=== PATIENT | female | born 1960 | race Caucasian/White ===

== ENCOUNTER 2018-12-17 00:57 | Emergency (ER) | payer MEDICAID ==
[~2018-12-17] VITALS: Ht 157.5 cm; Wt 62.6 kg
[2018-12-17 00:58] VITALS: BP 179/116
[2018-12-17] MEDS ORDERED: NACL 0.9% 1,000 ML IV ONE (01:15)
[2018-12-17 02:01] LABS: HEMATOCRIT 44.2 % (36-48); HEMOGLOBIN 14.6 g/dL (12.0-16.0); MEAN CORPUSCULAR HEMOGLOBIN 30 pg (27-31); MEAN CORPUSCULAR HGB CONC 33 g/dL (33-37); MEAN CORPUSCULAR VOLUME 90.8 fL (80-94); PLATELET COUNT (AUTO) 268 K/uL (140-450); RED BLOOD CELL COUNT(AUTO) 4.87 MIL/uL (4.20-5.40); RED CELL DISTRIBUTION WIDTH 13.1 % (11.6-13.7); WHITE BLOOD COUNT (AUTO) 8.7 K/uL (4.8-10.8)
[2018-12-17 02:05] LABS: ANION GAP 14.8 (8-16); CARBON DIOXIDE 26.7 mmol/L (21-32); POTASSIUM 3.5 mmol/L (3.5-5.1)
[2018-12-17 02:06] LABS: CREATININE 0.7 mg/dL (0.6-1.3); TOTAL BILIRUBIN 0.6 mg/dL (0.0-1.0)
[2018-12-17 02:17] LABS: EOSINOPHILS % (MANUAL) 2 % (0-4); LYMPHOCYTES % (MANUAL) 52 % (20-46); MONOCYTES % (MANUAL) 6 % (5-12)
[2018-12-17] MEDS ORDERED: INSULIN REGULAR, HUMAN 100 UNIT/ML VIAL IVP ONE (02:20)
[2018-12-17 03:51] VITALS: BP 140/91
== END 2018-12-17 03:52 | disposition home or self-care (01) ==
LOC: MED 00:57
DX: K59.00 Constipation, unspecified (principal); R50.9 Fever, unspecified; I10 Essential (primary) hypertension; E11.9 Type 2 diabetes mellitus without complications; R19.7 Diarrhea, unspecified
CPT/HCPCS: 36415; 74022; 80053; 85025; 89055; 96360; 96372; 99284; J1815; J7030

== ENCOUNTER 2020-12-08 17:42 | Inpatient (IN) | payer MEDICAID, SELFPAY ==
[~2020-12-08] VITALS: Ht 162.6 cm; Wt 46.7 kg
[2020-12-08 17:51] VITALS: BP 66/45
--- NOTE | 2020-12-08 18:08 | NUR ---
60YO F BIB AND DAUGHTER C/O POOR APPETITE AND FATIGUE X 1 MONTH. STATES LOSING ~15LBS IN THE LAST MONTH. ALSO WITH WEAKNESS AND DAILY EPISODES OF VOMITING. PT STATES SHE HAS NOT BEEN ABLE TO KEEP ANY FOOD/LIQUIDS DOWN. REPORTS SOB AT THIS TIME. DENIES ABDOMINAL PAIN, CHEST PAIN, FEVER, OR COUGH. BREATH SOUNDS DIMISHED ON L LOWER LOBES. BOWEL SOUNDS ACTIVE. PT PMH: DM, THN MEDS: NONE NKA
--- NOTE | 2020-12-08 18:26 | NUR ---
DR DAVIDSON AT BEDSIDE FOR ASSESSMENT.
[2020-12-08] MEDS ORDERED: NACL 0.9% 1,000 ML IV ONE ×2 (18:45→19:45)
--- NOTE | 2020-12-08 18:48 | NUR ---
IV 20 HEVER STARTED ON L AC.
--- NOTE | 2020-12-08 18:53 | NUR ---
BLOOD WORK COLLECTED AND WALKED OVER TO LAB
--- NOTE | 2020-12-08 18:59 | NUR ---
PATIENT WAS TAKEN TO XRAY VIA WHEELCHAIR.
[2020-12-08 19:02] LABS: BASOPHILS % (AUTO) 0.1 % (0.0-2.0); EOSINOPHILS % (AUTO) 0.1 % (0.0-4.0); HEMATOCRIT 30.6 % (36-48); HEMOGLOBIN 10.2 g/dL (12.0-16.0); LYMPHOCYTES # (AUTO) 5.1 K/uL (2.5-16.5); LYMPHOCYTES % (AUTO) 27.9 % (20.5-51.1); MEAN CORPUSCULAR HEMOGLOBIN 29 pg (27-31); MEAN CORPUSCULAR HGB CONC 33 g/dL (33-37); MEAN CORPUSCULAR VOLUME 86.3 fL (80-94); MONOCYTES # (AUTO) 0.6 K/uL (0.8-1.0); NEUTROPHILS # (AUTO) 12.7 K/uL (1.8-7.7); NEUTROPHILS % (AUTO) 68.9 % (42.2-75.2); PLATELET COUNT (AUTO) 374 K/uL (140-450); RED BLOOD CELL COUNT(AUTO) 3.54 MIL/uL (4.20-5.40); RED CELL DISTRIBUTION WIDTH 13.6 % (11.6-13.7); WHITE BLOOD COUNT (AUTO) 18.4 K/uL (4.8-10.8)
--- NOTE | 2020-12-08 19:07 | NUR ---
Anh gonzalez in [facility] - 12/08/20 at 1914 by [email or web address] REPORT GIVEN TO EDDIE MONTELONGO FOR TRANSFER OF CARE
--- NOTE | 2020-12-08 19:14 | NUR ---
REPORT GIVEN TO EDDIE MONTELONGO FOR TRANSFER OF CARE
--- NOTE | 2020-12-08 19:15 | NUR ---
GAVE REPORT TO JAYDA MORGAN FOR TRANSFER OF CARE.
[2020-12-08 19:25] LABS: ALBUMIN 2.3 g/dL (3.4-5.0); ANION GAP 7.7 (8-16); CARBON DIOXIDE 36.2 mmol/L (21-32); CREATININE 2.1 mg/dL (0.6-1.3); TOTAL BILIRUBIN 0.7 mg/dL (0.0-1.0)
[2020-12-08 19:28] LABS: POTASSIUM 2.9 mmol/L (3.5-5.1)
[2020-12-08] MEDS ORDERED: POTASSIUM CHLORIDE 20% 40 MEQ/15 ML UDC PO ONE (19:40)
[2020-12-08] MEDS ORDERED: POTASSIUM CHL 20 MEQ/ 1/2 NS 1,000 ML IV ONE (19:40)
[2020-12-08] MEDS ORDERED: VANCOMYCIN 1,000 MG in DEXTROSE 5% 250 ML IV ONE (19:40)
--- NOTE | 2020-12-08 19:43 | NUR ---
I&O DONE WITH PERICARE. PT TO BE ADMITTED. COMPREHENSIVE ASSEMENT DONE. PT RESTING ON ED GURNEY WITH NAD NOTED. VS WITHIN DEFINED LIMITS AT THIS TIME.
[2020-12-08] MEDS ORDERED: cefTRIAXone 2,000 MG in DEXTROSE 5% 100 ML IV ONE (19:45)
[2020-12-08 19:47] LABS: APPEARANCE,URINE CLOUDY (CLEAR); BILIRUBIN,URINE NEGATIVE (NEGATIVE); BLOOD, URINE 2+ (NEGATIVE); COLOR,URINE YELLOW (YELLOW); LEUKOCYTE ESTERASE ,URINE 2+ (NEGATIVE); NITRITE, URINE NEGATIVE (NEGATIVE); PH,URINE 5.5 (5.0-9.0); UGLUCOSE 3+ (NEGATIVE)
[2020-12-08 19:51] LABS: RBC,URINE 11-20 (MOD) /HPF (0-5)
[2020-12-08 19:52] LABS: YEAST,URINE Many /HPF (None Seen)
[2020-12-08] MEDS ORDERED: VANCOMYCIN 1,000 MG VIAL ONE (20:39)
--- NOTE | 2020-12-08 21:10 | NUR ---
CONSENT FOR IV CONTRAST DONE
[2020-12-08] MEDS: NACL 0.9% 1,000 ML IV SCH (21:30)
--- NOTE | 2020-12-08 22:09 | NUR ---
PT RETURN FROM CT
--- NOTE | 2020-12-08 22:17 | NUR ---
Anh gonzalez in [facility] - 12/08/20 at 2219 by [email or web address] BACK [address]
--- NOTE | 2020-12-08 22:17 | NUR ---
BACK FROM CT
--- NOTE | 2020-12-08 23:09 | NUR ---
PENDING BED ASSIGNMENT NO CHANGES NOTED IN PT STATUS.
[2020-12-08 23:22] LABS: CARBON DIOXIDE 36.1 mmol/L (21-32); CREATININE 1.8 mg/dL (0.6-1.3); POTASSIUM 3.1 mmol/L (3.5-5.1)
--- NOTE | 2020-12-08 23:22 | NUR ---
REPORT TO LINDA. ALL QUESTIONS ANSWERED. ROCEPHIN STILL NEEDS TO BE HUNG. PT IV SITE IN AC PT KEEPS BENDING ARM. IVF BAG #2 STILL NEEDS TO BE HUNG ALSO ENDORSED.
--- NOTE | 2020-12-08 23:30 | NUR ---
RECEIVING REPORT FROM EDDIE MONTELONGO RN FOR ADMIT TO [facility] ROOM 110A. REPORT STOPPED MID-REPORT D/T PATIENT NOT BEING STABLE. PT DX: HYPERGLYCEMIA WITH BS 672 W/ LETHARGY AND NO INTERVENTIONS PERFORMED IN ED. NO INSULIN ORDERED OR GIVEN TO PATIENT. NO BEDSIDE GLUCOSE ACCUCHECK PERFORMED IN ED EITHER. REPEAT 2300 CHEM LABS IN PROCESS AT THIS, PENDING. ENDORSED TO JAYDA MORGAN TO CALL ME BACK TO CONTINUE/FINISH REPORT ONCE PATIENT IS STABLE TO ADMIT TO FLOOR.
--- NOTE | 2020-12-08 23:30 | NUR ---
NURSE NOT WILLING TO ACCEPT PT AT THIS TIME D/T BLOOD GLUCOSE.
--- NOTE | 2020-12-08 23:35 | NUR ---
HVAC MANAGER MJ NOTIFIED THAT REPORT WAS NOT COMPLETED PT IS NOT STABLE FOR ADMIT TO FLOOR YET AND ED RN ADVISED TO CALL BACK TO CONTINUE/FINISH REPORT ONCE PATIENT STABLE AND ORDERS/INTERVENTIONS COMPLETE. HVAC MANAGER MJ IN AGREEMENT TO HOLD ADMIT TO FLOOR UNTIL PATIENT STABLE.
--- NOTE | 2020-12-08 23:40 | NUR ---
SHORT ORDER COOK FROM ED CALLED SHORT ORDER COOK VIJAYA TO NOTIFY THAT PATIENT WILL BE COMING TO FLOOR AND REPORT WILL BE GIVEN AT BEDSIDE WITH NO FURTHER ORDERS/INTERVENTIONS COMPLETE.
--- NOTE | 2020-12-08 23:44 | NUR ---
PT TO BE TRANSFERRED TO FLOOR. RECEIVING NURSE AWARE. DR SHEIKH GAVE ORDERS FOR INSULIN SLIDING SCALE AND 10 UNITS NOW.
[2020-12-08] MEDS ORDERED: INSULIN LISPRO SLIDING SCALE 100 UNITS/ML VIAL SUBQ PRN ×2 (23:45→23:59)
[2020-12-08] MEDS ORDERED: INSULIN REGULAR, HUMAN 100 UNIT/ML VIAL IVP ONE (23:45)
--- NOTE | 2020-12-08 23:45 | NUR ---
REESE FALCON NOTIFIED OF SITUATION THAT REPORT WAS NOT COMPLETED, PATIENT NOT STABILIZED FOR ADMIT TO FLOOR AND NO ORDERS/INTERVENTIONS COMPLETED IN ED. TERRIE TO ACCESS PATIENT IN ED.
[2020-12-08] MEDS ORDERED: cefTRIAXone 2,000 MG VIAL ONE (23:51)
--- NOTE | 2020-12-09 00:20 | NUR ---
PATIENT ARRIVED. ED RN DID NOT ACCOMPANY PATIENT TO COMPLETE BEDSIDE REPORT, NOR SEND LATE MEDS TO BE ADMINISTERED. CALLED ED DEATRA RN TO FINISH REPORT. 2300 CHEM COMPLETE, BS 598, 10U INSULIN GIVE PER UX DESIGN MANAGER. PT ARRIVED AAOX3. BREATHING EVEN AND UNLABORED ON RA WITH O2 SAT OF 99%. NO C/O CP, SOB OR PAIN. L AC 20G IVL, INTACT/PATENT. POC AND WHITE COMMUNICATION BOARD UPDATED. BED IN LOW/LOCKED POSITION. CALL LIGHT WITHIN REACH. PT ENCOURAGED TO CALL FOR ANY NEEDS/ASSISTANCE. WILL CONTINUE TO MONITOR.
--- NOTE | 2020-12-09 00:29 | NUR ---
BEDSIDE ACCUCHECK COMPLETE, BS 539. WILL CONTINUE TO MONITOR.
--- NOTE | 2020-12-09 00:39 | NUR ---
MEDICATED WITH INSULIN SUBQ FOR LAB BLOOD GLUCOSE 598 PRIOR TO TRANSPORT TO FLOOR
[2020-12-09 01:09] VITALS: BP 119/66
[2020-12-09] MEDS ORDERED: ZOLPIDEM 5 MG TAB PO PRN (01:10)
[2020-12-09] MEDS ORDERED: MORPHINE SULFATE 2 MG/ML SYR IVP PRN (01:10)
[2020-12-09] MEDS ORDERED: ACETAMINOPHEN 325 MG TAB PO PRN (01:10)
[2020-12-09] MEDS ORDERED: DOCUSATE SODIUM 100 MG GELCAP PO PRN (01:10)
[2020-12-09] MEDS ORDERED: LORazepam 2 MG/ML VIAL IM/IVP PRN (01:10)
[2020-12-09] MEDS ORDERED: ONDANSETRON 4 MG/2 ML VIAL IM/IVP PRN (01:10)
[2020-12-09] MEDS ORDERED: HYDROcodone/APAP 5/325 MG 1 TAB TAB PO PRN (01:10)
[2020-12-09] MEDS ORDERED: POTASSIUM CHLORIDE 10 MEQ TABER PO PRN (01:20)
[2020-12-09 01:46] LABS: BARBITURATE, URINE NEGATIVE ng/ml (NEG <=200); BENZODIAZEPINE, URINE NEGATIVE ng/mL (NEG <=200); CANNABINOID, URINE NEGATIVE ng/mL (NEG <=50); COCAINE, URINE NEGATIVE ng/mL (NEG <=300); OPIATE, URINE NEGATIVE ng/mL (NEG <=2000); PHENCYCLIDINE SCREEN,URINE NEGATIVE ng/mL (NEG <=25)
[2020-12-09 01:52] LABS: CHOL/HDL RATIO 2.4 (1-4.5); THYROID STIMULATING HORMONE 0.97 uIU/mL (0.34-3.74)
[2020-12-09 03:11] LABS: BASOPHILS % (AUTO) 0.2 % (0.0-2.0); EOSINOPHILS # (AUTO) 0.1 K/uL (0-0.4); EOSINOPHILS % (AUTO) 0.5 % (0.0-4.0); HEMATOCRIT 27.4 % (36-48); HEMOGLOBIN 9.2 g/dL (12.0-16.0); LYMPHOCYTES # (AUTO) 5.2 K/uL (2.5-16.5); LYMPHOCYTES % (AUTO) 31.1 % (20.5-51.1); MEAN CORPUSCULAR HEMOGLOBIN 29 pg (27-31); MEAN CORPUSCULAR HGB CONC 34 g/dL (33-37); MEAN CORPUSCULAR VOLUME 85.5 fL (80-94); MONOCYTES # (AUTO) 0.6 K/uL (0.8-1.0); MONOCYTES % (AUTO) 3.3 % (1.7-9.3); NEUTROPHILS # (AUTO) 10.8 K/uL (1.8-7.7); NEUTROPHILS % (AUTO) 64.9 % (42.2-75.2); PLATELET COUNT (AUTO) 373 K/uL (140-450); RED CELL DISTRIBUTION WIDTH 13.9 % (11.6-13.7); WHITE BLOOD COUNT (AUTO) 16.6 K/uL (4.8-10.8)
[2020-12-09 03:26] LABS: ANION GAP 5.7 (8-16); CARBON DIOXIDE 36.2 mmol/L (21-32); CREATININE 1.8 mg/dL (0.6-1.3)
[2020-12-09 03:28] LABS: MAGNESIUM 1.3 mg/dL (1.8-2.4)
[2020-12-09 04:00] VITALS: BP 136/74
[2020-12-09] MEDS: NACL 0.9% 1,000 ML IV SCH ×2 (04:10→10:50)
[2020-12-09 04:18] LABS: PROTHROMBIN TIME 15.1 secs (10.8-13.4)
[2020-12-09 04:22] LABS: POTASSIUM 2.9 mmol/L (3.5-5.1)
[2020-12-09] MEDS: PIPERACILLIN/TAZOBACTAM 3.375 GM in DEXTROSE 5% 50 ML IV SCH ×3 (05:00→21:07)
[2020-12-09] MEDS: MAG SULF 2000 MG/WATER PREMIX 50 ML IV PRN (05:01)
--- NOTE | 2020-12-09 06:59 | NUR ---
REPORT GIVEN TO YURIY MORGAN FOR CONTINUITY OF CARE. NO APPARENT S/S OF ACUTE DISTRESS. BREATHING EVEN AND UNLABORED. BED IN LOW/LOCKED POSITION. CALL LIGHT WITHIN REACH. ALL NEEDS MET AT THIS TIME.
--- NOTE | 2020-12-09 07:24 | NUR ---
RECEIVED REPORT FROM STROKE PROGRAM COORDINATOR NURSE FOR CONTINUITY OF CARE. PATIENT SLEEPING. BREATHING EVEN AND UNLABORED. NO ACUTE DISTRESS NOTED. CALL LIGHT WITHIN REACH. WILL CONTINUE TO MONITOR.
[2020-12-09 08:00] VITALS: BP 120/68
[2020-12-09] MEDS: PANTOPRAZOLE 40 MG INJ VIAL IVP SCH (08:31)
--- NOTE | 2020-12-09 08:32 | NUR ---
PATIENT AWAKE AND ALERT. NO ACUTE DISTRESS NOTED. PATIENT ON ROOM AIR. SCHEDULED MEDICATION GIVEN. CALL LIGHT WITHIN REACH. ALL SAFETY MEASURES IN PLACE. WILL CONTINUE TO MONITOR.
[2020-12-09 08:36] LABS: ANION GAP 11.6 (8-16); CARBON DIOXIDE 32.6 mmol/L (21-32); CREATININE 1.8 mg/dL (0.6-1.3); POTASSIUM 3.2 mmol/L (3.5-5.1)
[2020-12-09] MEDS ORDERED: DEXTROSE 50% 50 ML SYR IVP PRN (08:50)
[2020-12-09] MEDS: INSULIN LISPRO SLIDING SCALE 100 UNITS/ML VIAL SUBQ PRN ×3 (08:53→21:10)
--- NOTE | 2020-12-09 09:10 | NUR ---
PATIENT HAS BEEN SCREENED AND CATEGORIZED HIGH NUTRITION RISK. PATIENT WILL BE SEEN WITHIN 1-2 DAYS OF ADMISSION. 12/09/20-12/10/[address]
--- NOTE | 2020-12-09 10:29 | NUR ---
PATIENT AWAKE AND ALERT. NO ACUTE DISTRESS NOTED. PATIENT ON ROOM AIR. PATIENT DENIES PAIN AT THIS TIME. CALL LIGHT WITHIN REACH. ALL SAFETY MEASURES IN PLACE. WILL CONTINUE TO MONITOR.
[2020-12-09] MEDS: BLOOD GLUCOSE MONITORING 1 DEV DEV FS SCH ×3 (11:12→21:13)
[2020-12-09 11:41] LABS: ANION GAP 7.8 (8-16); CREATININE 1.9 mg/dL (0.6-1.3)
[2020-12-09 11:44] LABS: POTASSIUM 2.8 mmol/L (3.5-5.1)
[2020-12-09 12:00] VITALS: BP 106/64
[2020-12-09] MEDS ORDERED: MAG SULF 2000 MG/WATER PREMIX 50 ML IV PRN (12:05)
--- NOTE | 2020-12-09 12:14 | NUR ---
PATIENT SLEEPING. NO ACUTE DISTRESS NOTED. BREATHING EVEN AND UNLABORED. PATIENT ON ROOM AIR. CALL LIGHT WITHIN REACH. ALL SAFETY MEASURES IN PLACE. WILL CONTINUE TO MONITOR.
[2020-12-09] MEDS ORDERED: fentaNYL citrate 0.05 MG/ML VIAL ONE (12:46)
[2020-12-09] MEDS ORDERED: diphenhydrAMINE 50 MG/ML VIAL ONE (12:46)
[2020-12-09] MEDS ORDERED: MIDAZOLAM 5 MG/5 ML VIAL ONE (12:47)
[2020-12-09] MEDS ORDERED: PHYTONADIONE 10 MG/ML AMP SUBQ SCH (13:00)
--- NOTE | 2020-12-09 13:10 | NUR ---
PATIENT RETURN FROM EGD. VS STABLE. WILL CONTINUE TO MONITOR.
[2020-12-09] MEDS ORDERED: METOCLOPRAMIDE 10 MG/2 ML INJ VIAL IVP ONE (13:30)
[2020-12-09] MEDS ORDERED: fentaNYL citrate 0.05 MG/ML VIAL IVP ONE (13:30)
[2020-12-09] MEDS ORDERED: MIDAZOLAM 2 MG/2 ML VIAL IVP ONE (13:30)
[2020-12-09] MEDS ORDERED: METOCLOPRAMIDE 10 MG/2 ML INJ VIAL ONE (13:34)
--- NOTE | 2020-12-09 13:40 | NUR ---
LATE ENTRY- VANCOMYCIN IV DISCONTINUED AT 0039. POTASSIUM IV DISCONTINUED AT 0039.
[2020-12-09] MEDS: POTASSIUM CHL 20 MEQ/NACL 0.9% 1,000 ML IV SCH ×2 (14:06→22:15)
--- NOTE | 2020-12-09 14:24 | NUR ---
PATIENT SLEEPING. NO ACUTE DISTRESS NOTED. BREATHING EVEN AND UNLABORED. VS STABLE. CALL LIGHT WITHIN REACH. ALL SAFETY MEASURES IN PLACE. WILL CONTINUE TO MONITOR.
--- NOTE | 2020-12-09 14:39 | NUR ---
12/09/20 RD INITIAL ASSESSMENT COMPLETED PLEASE REFER TO NUTRITION ASSESSMENT UNDER CARE ACTIVITY FOR ESTIMATED NUTRITIONAL NEEDS. 1.CONTINUE NPO MEDICALLY NECESSARY 2.WHEN/IF MEDICALLY STABLE CONSIDER ADVACING TO [facility] DIET, LIMIT FATTY FOODS 3.WHEN/IF MEDICALLY STABLE CONSIDER ADDING GLUCERNA 1X /DAY 4. RD TO FOLLOW-UP 2-3 DAYS, HIGH RISK REVIEWED BY NAYE ROTH RD
[2020-12-09] MEDS ORDERED: OXYTOCIN 10 UNITS/ML VIAL IM PRN (15:00)
[2020-12-09] MEDS ORDERED: MEASLES, MUMPS, AND RUBELLA 1 VIAL SQVAC ONE (15:00)
[2020-12-09] MEDS ORDERED: BENZOCAINE/MENTHOL 20%-0.5% 60 GM CAN TP PRN (15:00)
[2020-12-09] MEDS ORDERED: METHYLERGONOVINE 0.2 MG/ML AMP IM PRN (15:00)
[2020-12-09] MEDS ORDERED: METHYLERGONOVINE 0.2 MG TAB PO PRN (15:00)
--- NOTE | 2020-12-09 15:08 | NUR ---
DR. STEWART AT BEDSIDE. DOCTOR PULLED OUT ROSEMARY DRAIN. Addendum: 12/09/20 at 1541 by Carol Oakley RN DOCUMENT FOR WRONG PATIENT
--- NOTE | 2020-12-09 15:50 | NUR ---
PATIENT HAVING PELVIC EXAM AT BEDSIDE.
[2020-12-09 16:00] VITALS: BP 154/84
[2020-12-09 16:59] LABS: ANION GAP 8.7 (8-16); CARBON DIOXIDE 33.3 mmol/L (21-32); CREATININE 1.4 mg/dL (0.6-1.3)
[2020-12-09] MEDS ORDERED: POTASSIUM CHLORIDE 40 MEQ, LIDOCAINE MPF 1% 25 MG in NACL 0.9% 250 ML IV ONE (17:00)
[2020-12-09] MEDS: AMYLASE/LIPASE/PROTEASE 1 CAPDR PO SCH (17:19)
--- NOTE | 2020-12-09 17:48 | NUR ---
PATIENT SLEEPING. BREATHING EVEN AND UNLABORED. NO ACUTE DISTRESS NOTED. PATIENT ON ROOM AIR. CALL LIGHT WITHIN REACH. ALL SAFETY MEASURES IN PLACE. WILL CONTINUE TO MONITOR.
[2020-12-09] MEDS ORDERED: FLUCONAZOLE 100 MG TAB PO SCH (17:55)
--- NOTE | 2020-12-09 18:00 | NUR ---
ULTRASOUND IN PROCESS.
[2020-12-09] MEDS: FLUCONAZOLE 100 MG/NS PREMIX 50 ML IV SCH (18:04)
[2020-12-09] MEDS: METOCLOPRAMIDE 10 MG/2 ML INJ VIAL IVP SCH (18:58)
--- NOTE | 2020-12-09 19:15 | NUR ---
ENDORSED TO TRADE CLERK NURSE FOR CONTINUITY OF CARE. PATIENT AWAKE AND ALERT TALKING ON THE PHONE. PATIENT STABLE. CALL LIGHT WITHIN REACH. ALL SAFETY MEASURES IN PLACE.
--- NOTE | 2020-12-09 19:30 | NUR ---
RECEIVED REPORT FROM RN DAYSHIFT NURSE AT BEDSIDE FOR CONTINUITY OF CARE, PT IN STABLE CONDITION.
[2020-12-09 20:00] VITALS: BP 107/56
--- NOTE | 2020-12-09 20:00 | NUR ---
PT SITTING UP IN BED AOX3 SHE IS ON ROOM AIR V/S FOLLOWS: T 98.7 P 97 R 18 B/P 107/56 02 96%. SHE HAS A LAC 20 GUAGE RUNNING K RIDER. PT HAD INCONTINENT EPISODE WITH LARGE AMOUNT OF VERY LOOSE STOOL. SHE WAS TURNED, CHANGED AND REPOSITIONED IN BED. PT HAS KAUR CATHETER INTACT AND DRAINING CLOUDY YELLOW URINE WITH SEDIMENT. PT DENIES ANY PAIN , ALL ORDERED PRECAUTIONS IN PLACE.
[2020-12-09] MEDS: NYSTATIN POW 100 MU/GM 15 GM BTL TP SCH (20:49)
[2020-12-09] MEDS: GLIMEPIRIDE 2 MG TAB PO SCH (20:49)
[2020-12-09] MEDS ORDERED: bisacodyL 5 MG TABEC PO SCH (21:00)
--- NOTE | 2020-12-09 21:00 | NUR ---
PT FINGERSTICK IS 255, SHE WAS GIVEN 6 UNITS OF HUMALOG COVERAGE PER S/S. PT ALSO GIVEN ORDERED PO AMARYL. SHE WAS GIVEN HEPARIN SQ AND NYSTATIN POWDER TO BUTTOCKS AND CADE AREA. PT EDUCATED REGARDING MEDICATION, SHE VERBALIZED UNDERSTANDING. ALL ORDERED PRECAUTIONS IN PLACE.
--- NOTE | 2020-12-09 22:00 | NUR ---
PT TURNED, CHANGED AND REPOSITIONED IN BED. KAUR CATHETER IN PLACE. PT DENIES ANY PAIN. ZOSYN HUNG AND CONTINUES AT 100MLS/HR. VIA LAC. ALL ORDERED PRECAUTIONS IN PLACE.
--- NOTE | 2020-12-09 23:00 | NUR ---
PT ASLEEP IV ORDERED FLUIDS OF POTASSIUM CHLORIDE 20 MEQ IS RUNNING AT 100MLS/HR ORDERED. ALL ORDERED PRECAUTIONS IN PLACE.
[2020-12-10] VITALS: BP 117/66
--- NOTE | 2020-12-10 00:30 | NUR ---
T 98.1 P 87 R 18 B/P 117/66 02 96% ON ROOM AIR. NO S/S OF PAIN OR DISTRESS NOTED, FLUIDS RUNNING ORDERED AND ALL ORDERED PRECAUTIONS IN PLACE. KAUR CATHETER IN PLACE, NO VAGINAL BLEEDING OR DISCHARGE NOTED.
--- NOTE | 2020-12-10 02:30 | NUR ---
PT SLEEPING NO C/O VOICED.
[2020-12-10 04:00] VITALS: BP 141/72
--- NOTE | 2020-12-10 04:30 | NUR ---
PT IN BED, SHE WAS TURNED AND REPOSITIONED IN BED V/S STABLE.
[2020-12-10 05:34] LABS: BASOPHILS % (AUTO) 0.2 % (0.0-2.0); EOSINOPHILS # (AUTO) 0.1 K/uL (0-0.4); HEMATOCRIT 24.4 % (36-48); HEMOGLOBIN 8.2 g/dL (12.0-16.0); LYMPHOCYTES # (AUTO) 4.6 K/uL (2.5-16.5); LYMPHOCYTES % (AUTO) 31.4 % (20.5-51.1); MEAN CORPUSCULAR HEMOGLOBIN 29 pg (27-31); MEAN CORPUSCULAR HGB CONC 34 g/dL (33-37); MEAN CORPUSCULAR VOLUME 85.5 fL (80-94); MONOCYTES # (AUTO) 0.4 K/uL (0.8-1.0); MONOCYTES % (AUTO) 2.6 % (1.7-9.3); NEUTROPHILS # (AUTO) 9.5 K/uL (1.8-7.7); NEUTROPHILS % (AUTO) 64.8 % (42.2-75.2); PLATELET COUNT (AUTO) 322 K/uL (140-450); RED BLOOD CELL COUNT(AUTO) 2.85 MIL/uL (4.20-5.40); WHITE BLOOD COUNT (AUTO) 14.6 K/uL (4.8-10.8)
[2020-12-10 05:37] LABS: ANION GAP 8.6 (8-16); CARBON DIOXIDE 31.8 mmol/L (21-32); CREATININE 1.1 mg/dL (0.6-1.3); POTASSIUM 3.4 mmol/L (3.5-5.1)
[2020-12-10 05:42] LABS: MAGNESIUM 1.4 mg/dL (1.8-2.4); PHOSPHORUS 1.8 mg/dL (2.5-4.9)
[2020-12-10] MEDS: METOCLOPRAMIDE 10 MG/2 ML INJ VIAL IVP SCH ×4 (06:06→17:42)
[2020-12-10] MEDS: PIPERACILLIN/TAZOBACTAM 3.375 GM in DEXTROSE 5% 50 ML IV SCH ×3 (06:10→21:33)
[2020-12-10] MEDS: INSULIN LISPRO SLIDING SCALE 100 UNITS/ML VIAL SUBQ PRN (06:23)
[2020-12-10] MEDS: BLOOD GLUCOSE MONITORING 1 DEV DEV FS SCH ×4 (06:25→21:33)
--- NOTE | 2020-12-10 06:27 | NUR ---
NOEMY HUNG AND RUNNING AT 100MLS/HR FINGERSTICK IS 172, SHE WAS GIVEN 2 UNITS OF HUMALOG PER S/S, NO C/O VOICED.
--- NOTE | 2020-12-10 07:25 | NUR ---
RECEIVED BEDSIDE REPORT FROM FIRER LOCOMOTIVE NURSE FOR CONTINUITY OF CARE. PT IS AWAKE AND ALERT. ON RA WITH BREATHING UNLABORED. KAUR CATH IN PLACE. SKIN IS WARM, DRY, AND INTACT. IV IS IN THE LEFT AC 20 GAUGE RUNNING FLUIDS ORDERED. PT IS STABLE AT THIS TIME. PLAN OF CARE DISCUSSED.
[2020-12-10 08:00] VITALS: BP 135/72
[2020-12-10] MEDS: AMYLASE/LIPASE/PROTEASE 1 CAPDR PO SCH ×3 (08:00→17:42)
[2020-12-10] MEDS: POTASSIUM CHL 20 MEQ/NACL 0.9% 1,000 ML IV SCH (08:15)
[2020-12-10] MEDS ORDERED: MAG SULF 2000 MG/WATER PREMIX 50 ML IV SCH (09:00)
[2020-12-10 09:06] LABS: T4 (THYROXINE) 5.6 ug/dL (4.5-12.0)
[2020-12-10] MEDS: PANTOPRAZOLE 40 MG INJ VIAL IVP SCH (09:27)
[2020-12-10] MEDS: VENLAFAXINE 37.5 MG TAB PO SCH (09:29)
[2020-12-10] MEDS: GLIMEPIRIDE 2 MG TAB PO SCH ×2 (09:29→21:34)
[2020-12-10] MEDS: NYSTATIN POW 100 MU/GM 15 GM BTL TP SCH ×2 (09:30→21:34)
[2020-12-10] MEDS: POTASSIUM CHLORIDE 10 MEQ TABER PO PRN (09:31)
--- NOTE | 2020-12-10 09:31 | NUR ---
KDUR 40 MEQ WAS GIVEN PRN FOR POTASSIUM LEVEL OF 3.4. MAGNESIUM RIDER 2 GRAM IVPB WAS GIVEN ORDERED FOR MAGNESIUM LEVEL OF 1.4. MEDICATION EDUCATION WAS PROVIDED AND PT VERBALIZED UNDERSTANDING.
--- NOTE | 2020-12-10 09:40 | NUR ---
WOUND CARE EVALUATION NOTE: SKIN ASSESSMENT DONE TO THIS 60 Y/O PT. AAX4, CADE CARE PROVIDES. MODERATE MOISTURE ASSOCIATED DERMATITIS /FUNGAL INFECTION TO R/L LABIA EXTENDED TO CADE-ANAL SKIN WITH MULTIPLE SUPERFICIAL EROSIONS MOIST MILD ODOR. POC DISCUSSED WITH PT. PT. VERBALIZES UNDERSTANDING.WILL CONTINUE CADE CARE WITH NYSTATIN POWDER BID ORDERED.
--- NOTE | 2020-12-10 11:30 | NUR ---
BS READING WAS 110. NO INSULIN COVERAGE NEEDED PER SLIDING SCALE. DAUGHTER IS AT BEDSIDE. PT IS STABLE.
--- NOTE | 2020-12-10 11:51 | NUR ---
RECEIVED VERBAL ORDER FROM DR. GATES TO [facility] DIET TO [facility] 60 GRAM DIET, SOFT FOODS. WILL INFORM DIETARY.
[2020-12-10 12:00] VITALS: BP 154/89
--- NOTE | 2020-12-10 12:00 | NUR ---
PT WAS CHANGED AND REPOSITIONED. PT WAS GIVEN BED BATH. PILLOWS WERE USED TO OFFSET PRESSURE ON BUTTOCKS.
--- NOTE | 2020-12-10 12:20 | NUR ---
DC PLANNIN YRS OLD FEMALE PATIENT WAS ADMITTED FROM HOME WITH A DX OF HYPERGLYCEMIA, ONDINA AND ANEMIA. PATIENT HAS A HX OF UTI. CT ABD SHOWED UTERINE MALIGNANCY. US GALLBLADDER SHOWED CHOLELITHIASIS. STARTED ON ZOSYN IV ABX AND IVF. CONSULTED WITH MARKETING SUPPORT MANAGER, GI AND UROLOGIST. DR ROMANO PERFORMED EGD FINDINGS SUSPECTED NICOLE ESOPHAGITIS. DC PLAN TO GO HOME WHEN STABLE. CM TO FOLLOW Addendum: 12/10/20 at 1517 by Reyna Lua CM PATIENT IS A 60-YEAR-OLD FEMALE ADMITTED ON 12/08/2020 FROM THE [facility]/ED DUE TO WEAKNESS, LOSS OF APPETITE, UNINTENTIONAL WEIGH LOSS ABOUT 30 LBS. FOR THE LAST 4 MONTHS. ALIYAH MET WITH PATIENT AT BEDSIDE TO DISCUSS AND GATHER HER COLLATERAL INFORMATION. PATIENT REPORTED LIVING AT HOME WITH HER TRISTAN ESTEVES AND HER DAUGHTER OTMMY ESTEVES WHO IS ALSO PATIENT'S EMERGENCY CONTACT. PATIENT REPORTED NOT HAVING ADVANCE DIRECTIVES,AND WAS INTERESTED ON GETTING INF. PACKET PROVIDED BY THESE DETAIL TECHNICIAN DURING THE VISIT. PATIENT REPORTED NOT HAVING ANY ISSUES GETTING OR TAKING HIS MEDICATIONS FROM THE [facility] IN [place] NEAR HER HOME. PATIENT STATED THAT HER ONLY DME AT HOME IS HER WALKER. PATIENT STATED THAT SHE HAS NOT GOING TO SEE AN MD IN A WHILE AND THAT SHE DID NOT HAVE A PCP CURRENTLY. ALIYAH PROVIDED HER WITH A LIST OF LOW INCOME CLINICS AND OTHER RESOURCES IN HER AREA. ALIYAH INFORMED PATIENT THAT A FOLLOW UP APPOINTMENT WILL BE IMPORTANT FOR PATIENT TO MAKE WHEN SHE IS DC FROM [facility]. PATIENT AGREED AND STATED THAT SHE WILL GO TO ONE OF THE CLINICS NEAR HER AREA LISTED IN THE RESOURCES PROVIDED BY THESE DETAIL TECHNICIAN. PER PATIENT SHE WILL BE GOING BACK HOME WITH THE ASSISTANCE OF HER WHO WILL PICK HER UP AND TAKE HER HOME WHEN SHE IS READY FOR DC FROM [facility]. SW THANKED HER FOR THE INFORMATION PROVIDED AND LEFT THE ROOM. SW WILL FOLLOW UP NEEDED
--- NOTE | 2020-12-10 13:30 | NUR ---
PT DID NOT EAT LUNCH. PT STATES SHE DOES NOT HAVE AN APPETITE RIGHT NOW. NO DISTRESS NOTED. PT DENIES PAIN. IV IS PATENT AND INTACT. ENCOURAGED PT TO DRINK WATER AND TRY TO EAT DINNER THIS EVENING. WILL CONTINUE TO MONITOR.
[2020-12-10] MEDS: FLUCONAZOLE 100 MG/NS PREMIX 50 ML IV SCH (14:28)
--- NOTE | 2020-12-10 15:30 | NUR ---
SON AT BEDSIDE VISITING PT. PT STATES SHE IS OKAY RIGHT NOW. NO DISTRESS NOTED. NO PAIN AT THIS TIME. BREATHING IS UNLABORED ON RA. WILL CONTINUE TO MONITOR.
[2020-12-10] MEDS ORDERED: SODIUM PHOS / POTASSIUM PHOS 1 PKT PDR PO PRN (15:55)
[2020-12-10 16:00] VITALS: BP 158/92
--- NOTE | 2020-12-10 16:30 | NUR ---
BS READING IS 131. NO INSULIN COVERAGE NEEDED PER SLIDING SCALE.
--- NOTE | 2020-12-10 18:00 | NUR ---
PT IS SLEEPING. CHEST RISE AND FALL IS SYMMETRICAL. ON RA WITH BREATHING UNLABORED. NO PAIN NOTED. FLUIDS ARE INFUSING ORDERED. PT IS STABLE.
--- NOTE | 2020-12-10 19:25 | NUR ---
ENDORSED PT TO JIGGER ARTISAN NURSE FOR CONTINUITY OF CARE. PT IS STABLE AT THIS TIME. PLAN OF CARE DISCUSSED.
[2020-12-10 20:00] VITALS: BP_SYST 134; BP_SYST 136; BP_DIAS 76; BP_DIAS 78
[2020-12-10] MEDS: METOPROLOL 25 MG TAB PO SCH (21:33)
[2020-12-11] VITALS: BP 130/74
[2020-12-11] MEDS: POTASSIUM CHL 20 MEQ/NACL 0.9% 1,000 ML IV SCH (02:57)
[2020-12-11 03:44] VITALS: BP 142/82
[2020-12-11] MEDS: PIPERACILLIN/TAZOBACTAM 3.375 GM in DEXTROSE 5% 50 ML IV SCH ×3 (05:34→22:45)
[2020-12-11] MEDS: METOCLOPRAMIDE 10 MG/2 ML INJ VIAL IVP SCH ×4 (05:55→18:00)
[2020-12-11 06:00] VITALS: BP 128/80
[2020-12-11 06:04] LABS: BASOPHILS % (AUTO) 0.1 % (0.0-2.0); EOSINOPHILS # (AUTO) 0.2 K/uL (0-0.4); EOSINOPHILS % (AUTO) 1.5 % (0.0-4.0); HEMATOCRIT 28.3 % (36-48); HEMOGLOBIN 9.4 g/dL (12.0-16.0); LYMPHOCYTES # (AUTO) 5.1 K/uL (2.5-16.5); LYMPHOCYTES % (AUTO) 36.2 % (20.5-51.1); MEAN CORPUSCULAR HEMOGLOBIN 29 pg (27-31); MEAN CORPUSCULAR HGB CONC 33 g/dL (33-37); MEAN CORPUSCULAR VOLUME 86.5 fL (80-94); MONOCYTES # (AUTO) 0.3 K/uL (0.8-1.0); MONOCYTES % (AUTO) 2.5 % (1.7-9.3); NEUTROPHILS # (AUTO) 8.4 K/uL (1.8-7.7); NEUTROPHILS % (AUTO) 59.7 % (42.2-75.2); PLATELET COUNT (AUTO) 413 K/uL (140-450); RED BLOOD CELL COUNT(AUTO) 3.27 MIL/uL (4.20-5.40); WHITE BLOOD COUNT (AUTO) 14.1 K/uL (4.8-10.8)
[2020-12-11 06:06] LABS: ANION GAP 6.1 (8-16); CARBON DIOXIDE 35.5 mmol/L (21-32); CREATININE 0.9 mg/dL (0.6-1.3); POTASSIUM 3.6 mmol/L (3.5-5.1)
[2020-12-11 06:14] LABS: MAGNESIUM 1.3 mg/dL (1.8-2.4); PHOSPHORUS 2.1 mg/dL (2.5-4.9)
--- NOTE | 2020-12-11 07:05 | NUR ---
RECEIVED REPORT FROM PACKING LINE WORKER NURSE FOR CONTINUITY OF CARE. PATIENT IS IN BED AT THIS TIME RESTING. RESPIRATIONS ARE EVEN AND UNLABORED. CALL LIGHT WITHIN REACH. ALL SAFETY MEASURES IN PLACE. WILL CONTINUE TO MONITOR.
[2020-12-11] MEDS: BLOOD GLUCOSE MONITORING 1 DEV DEV FS SCH ×4 (09:39→21:00)
[2020-12-11] MEDS: VENLAFAXINE 37.5 MG TAB PO SCH (09:42)
[2020-12-11] MEDS: METOPROLOL 25 MG TAB PO SCH ×2 (09:42→22:47)
[2020-12-11] MEDS: GLIMEPIRIDE 2 MG TAB PO SCH ×2 (09:43→22:46)
[2020-12-11] MEDS: AMYLASE/LIPASE/PROTEASE 1 CAPDR PO SCH ×3 (09:45→17:13)
--- NOTE | 2020-12-11 09:45 | NUR ---
ADMINISTERED ALL SCHEDULED MEDICATIONS. EDUCATED PATIENT ON MEDICATIONS ADMINISTERED. PATIENT STATED AN UNDERSTANDING OF INFORMATION PROVIDED. PATIENT TOLERATED WELL. WILL CONTINUE TO MONITOR.
[2020-12-11] MEDS: NYSTATIN POW 100 MU/GM 15 GM BTL TP SCH ×2 (10:30→22:48)
--- NOTE | 2020-12-11 10:53 | NUR ---
PATIENT IS ALERT AND ORIENTED X4. SHE IS ON ROOM AIR, WITH RESPIRATIONS EVEN AND UNLABORED. NO SIGNS OF DISTRESS NOTED. PATIENT ABD IS FLAT, SOFT, NON-TENDER, AND NON-DISTENDED WITH BOWEL SOUNDS PRESENT. PATIENT HAS KAUR CATHETER IN PLACE. KAUR IS INTACT, PATENT, AND DRAINING YELLOW/CLOUDY FLUID. PATIENT IS INCONTINENT OF BOWEL. PATIENT HAS IV TO L-AC 20G. IV IS INTACT AND PATENT. PATIENT SKIN IS WARM, DRY, AND INTACT. PATIENT ABLE TO VERBALIZE NEEDS TO STAFF. ALL SAFETY MEASURES IN PLACE. CALL LIGHT WITHIN REACH. WILL CONTINUE TO MONITOR.
[2020-12-11] MEDS ORDERED: FLUC200T PO (11:46)
[2020-12-11] MEDS ORDERED: METO25TA PO ×2 (11:46→18:20)
[2020-12-11] MEDS ORDERED: [UNRECOGNIZED DRUG - CODE] PO (11:46)
[2020-12-11] MEDS ORDERED: PAN PO (11:46)
[2020-12-11] MEDS ORDERED: METO-485 PO (11:46)
[2020-12-11] MEDS ORDERED: GLIM2TAB PO (11:48)
[2020-12-11 12:00] VITALS: BP 139/79
--- NOTE | 2020-12-11 13:00 | NUR ---
RN ADMINISTER IV MEDICATION ZOSYN. NO COMPLAINTS OF ADVERSE REACTIONS. NO COMPLAINTS OF PAIN OR DISCOMFORT. WILL CONTINUE TO MONITOR.
--- NOTE | 2020-12-11 14:31 | NUR ---
12/11/20 RD FOLLOW UP COMPLETED PLEASE REFER TO NUTRITION PROGRESS NOTE UNDER CARE ACTIVITY FOR ESTIMATED NUTRITION NEEDS. RD RECOMMENDATIONS: 1. CONTINUE CCHO 60 GM SOFT DIET 2. RECOMMEND ADDING GLUCERNA SHAKE BID TO OPTIMIZE NUTRITION INTAKE. 3. RD TO FOLLOW-UP 2-3 DAYS, HIGH RISK KEVIN CLEMENS, RD
[2020-12-11] MEDS: FLUCONAZOLE 100 MG/NS PREMIX 50 ML IV SCH (15:02)
[2020-12-11 16:00] VITALS: BP 169/90
--- NOTE | 2020-12-11 16:00 | NUR ---
PATIENT HAS DC ORDER. PATIENT WILL DC AFTER IV ANTIBIOTIC ADMINISTRATION.
--- NOTE | 2020-12-11 17:05 | NUR ---
PATIENT HAS DC ORDER, HOWEVER PATIENT BP IS ELEVATED. INFORMED DR DREW GATES. DR ORDERED LISINOPRIL 20MG. WILL RE-CHECK BP IN 1 HOUR. IF BP DECREASES, PATIENT IS OK TO DC HOME PER DR ORDER. WILL CONTINUE TO MONITOR.
[2020-12-11] MEDS: lisinopriL 20 MG TAB PO SCH (17:14)
[2020-12-11] MEDS: INSULIN LISPRO SLIDING SCALE 100 UNITS/ML VIAL SUBQ PRN (17:16)
--- NOTE | 2020-12-11 18:05 | NUR ---
PATIENT BP IS 166/98 1 HOUR AFTER LISINOPRIL ADMINISTRATION. INFORMED DR GATES. PER DR, IF BP DECREASES, PATIENT CAN DISCHARGE TONIGHT OR TOMORROW MORNING. WILL CONTINUE TO MONITOR.
[2020-12-11] MEDS ORDERED: LISI-486 PO (18:20)
--- NOTE | 2020-12-11 19:00 | NUR ---
PATIENT RECEIVED IN BED ALERT AND ORIENTED X 4. ASSISTED WITH ADL'S AND TRANSFERS NEEDED. DISCUSSED WITH PATIENT MEDICAL PLAN OF CARE, FALL AND SAFETY INTERVENTIONS AND MEDICAL MANAGEMENT. IV TO LAC 20G INTACT. GENERALIZED WEAKNESS NOTED. ASSISTED WITH ADL'S AND REPOSITIONING NEEDED. PATIENT SKIN INTACT. PLAN TO DC HOME IN AM PER PHYSICIAN EVALUATION. NO ACUTE DISTRESS NOTED.
--- NOTE | 2020-12-11 19:20 | NUR ---
ENDORSED PATIENT TO EXTRACT MIXER NURSE FOR CONTINUITY OF CARE. PATIENT STABLE.
[2020-12-11 20:00] VITALS: BP 140/88
[2020-12-12] VITALS: BP 138/84
[2020-12-12] MEDS: METOCLOPRAMIDE 10 MG/2 ML INJ VIAL IVP SCH ×3 (00:17→13:07)
--- NOTE | 2020-12-12 01:19 | NUR ---
PATIENT SLEEPING DURING ROUNDING, EASILY AROUSED. FALL AND SAFETY INTERVENTIONS ONGOING. NO ACUTE DISTRESS NOTED. ASSISTED WITH ADLS NEEDED.
[2020-12-12] MEDS: POTASSIUM CHL 20 MEQ/NACL 0.9% 1,000 ML IV SCH (01:31)
[2020-12-12 04:00] VITALS: BP 142/82
[2020-12-12] MEDS: PIPERACILLIN/TAZOBACTAM 3.375 GM in DEXTROSE 5% 50 ML IV SCH ×3 (05:42→21:00)
[2020-12-12 06:15] LABS: BASOPHILS % (AUTO) 0.3 % (0.0-2.0); EOSINOPHILS # (AUTO) 0.2 K/uL (0-0.4); EOSINOPHILS % (AUTO) 1.7 % (0.0-4.0); HEMATOCRIT 31.4 % (36-48); HEMOGLOBIN 10.5 g/dL (12.0-16.0); LYMPHOCYTES # (AUTO) 5.3 K/uL (2.5-16.5); LYMPHOCYTES % (AUTO) 43.7 % (20.5-51.1); MEAN CORPUSCULAR HEMOGLOBIN 29 pg (27-31); MEAN CORPUSCULAR HGB CONC 34 g/dL (33-37); MEAN CORPUSCULAR VOLUME 85.8 fL (80-94); MONOCYTES # (AUTO) 0.4 K/uL (0.8-1.0); MONOCYTES % (AUTO) 2.9 % (1.7-9.3); NEUTROPHILS # (AUTO) 6.2 K/uL (1.8-7.7); NEUTROPHILS % (AUTO) 51.4 % (42.2-75.2); PLATELET COUNT (AUTO) 409 K/uL (140-450); RED BLOOD CELL COUNT(AUTO) 3.66 MIL/uL (4.20-5.40); RED CELL DISTRIBUTION WIDTH 13.7 % (11.6-13.7); WHITE BLOOD COUNT (AUTO) 12.2 K/uL (4.8-10.8)
[2020-12-12] MEDS: lisinopriL 20 MG TAB PO SCH (06:21)
[2020-12-12] MEDS: METOPROLOL 25 MG TAB PO SCH ×2 (06:30→21:00)
[2020-12-12 06:37] LABS: ANION GAP 6.2 (8-16); CARBON DIOXIDE 35.9 mmol/L (21-32); CREATININE 0.8 mg/dL (0.6-1.3); POTASSIUM 3.1 mmol/L (3.5-5.1)
[2020-12-12] MEDS: BLOOD GLUCOSE MONITORING 1 DEV DEV FS SCH ×6 (06:47→21:00)
[2020-12-12 06:52] LABS: PHOSPHORUS 2.7 mg/dL (2.5-4.9)
--- NOTE | 2020-12-12 07:35 | NUR ---
RECEIVED REPORT FROM BLENDING PLANT OPERATOR NURSE FOR CONTINUITY OF CARE. PER BLENDING PLANT OPERATOR RN, PATIENT WAS ALERT MOST OF THE NIGHT AND EASILY AROUSED. BLENDING PLANT OPERATOR NURSE INFORMED ON COMING STAFF THAT SHE NOTICED PATIENT WAS BECOMING SLIGHTLY HARDER TO AROUSE AND THAT SHE INFORMED OPERATING ROOM NURSE THAT SHE BELIEVED PATIENT WAS SEPTIC AND SHOULD NOT BE ON MST UNIT. BLENDING PLANT OPERATOR RN ALSO INFORMED ON COMING SHIFT THAT PATIENT BLOOD GLUCOSE WAS 98 THIS MORNING. BLENDING PLANT OPERATOR NURSE ALSO STATED THAT PATIENT BLOOD PRESSURE WAS ELEVATED. THAT IT WAS 159/92. STATED SHE CALLED AND RECEIVED ORDERS TO ADMINISTER SCHEDULED LISINOPRIL AND LOPRESSOR EARLY. STATED SHE ADMINISTERED AT 0621. CURRENTLY PATIENT IS ON ROOM AIR. RESPIRATIONS ARE EVEN AND UNLABORED. NO SIGNS OF DISTRESS NOTED. PATIENT VS: 164/93, HR 96, TEMP 97.5, O2 SAT 95%.
[2020-12-12 08:00] VITALS: BP 164/93
--- NOTE | 2020-12-12 08:00 | NUR ---
RAPID RESPONSE CALLED. PATIENT VS: 169/98, HR 96, TEMP 97.5, RR 16, O2 SAT 95%. UNABLE TO AROUSE PATIENT. BLOOD GLUCOSE 33.
--- NOTE | 2020-12-12 08:03 | NUR ---
D50 1 AMP GIVEN BY KENNA
[2020-12-12] MEDS ORDERED: DEXTROSE 10% 1,000 ML IV ONE (08:04)
--- NOTE | 2020-12-12 08:10 | NUR ---
rapid response was called due to decreased level of cons. arrived to find patient on room air bilateral shallow breath sounds noted - saturations were in the mid to high 90s. patient was biting down significantly/grimaced when yankuer placed in airway- after receiving meds patient was able to open mouth on command - and shortly after patient was able to open eyes on command - patient able to respond at this time
--- NOTE | 2020-12-12 08:10 | NUR ---
D50 / AMP GIVEN BY KENNA
[2020-12-12 08:12] LABS: MAGNESIUM 0.9 mg/dL (1.8-2.4)
--- NOTE | 2020-12-12 08:12 | NUR ---
LAB CALLED TO REPORT CRITICAL LAB VALUES. MAGNESIUM 0.9, CALCIUM 7.6, AND BLOOD GLUCOSE 37. DR GATES INFORMED. NEW ORDERS GIVEN AND NOTED. WILL CARRY OUT.
--- NOTE | 2020-12-12 08:15 | NUR ---
PATIENT AWAKE, ALERT, AND ORIENTED. WILL CONTINUE TO MONITOR.
[2020-12-12] MEDS ORDERED: MAG SULF 2000 MG/WATER PREMIX 100 ML IV SCH (08:35)
[2020-12-12] MEDS ORDERED: MAGNESIUM OXIDE 400 MG TAB PO SCH (08:35)
[2020-12-12] MEDS ORDERED: CALCIUM CARB 600 MG TAB PO SCH (08:35)
--- NOTE | 2020-12-12 09:30 | NUR ---
DR DREW GATES AT BEDSIDE. PER [address] Q2H, ONLY COVER WITH INSULIN IF BLOOD SUGAR OVER 300.
[2020-12-12] MEDS: AMYLASE/LIPASE/PROTEASE 1 CAPDR PO SCH ×3 (10:09→17:48)
[2020-12-12] MEDS: VENLAFAXINE 37.5 MG TAB PO SCH (10:12)
[2020-12-12] MEDS: NYSTATIN POW 100 MU/GM 15 GM BTL TP SCH ×2 (10:12→21:00)
--- NOTE | 2020-12-12 11:30 | NUR ---
BLOOD GLUCOSE IS 247. PER DR GATES ONLY COVER WITH INSULIN IF BLOOD GLUCOSE IS OVER 300. WILL CONTINUE TO MONITOR.
[2020-12-12 12:00] VITALS: BP 171/93
[2020-12-12] MEDS ORDERED: lisinopriL 20 MG TAB PO SCH (12:00)
[2020-12-12] MEDS ORDERED: DEXT 5% /NACL 0.9% 1,000 ML IV SCH (12:00)
--- NOTE | 2020-12-12 12:25 | NUR ---
PATIENT IS AWAKE, ALERT, AND ORIENTED. PATIENT IS EATING LUNCH AT THIS TIME AND TOLERATING WELL. NO COMPLAINTS OF PAIN OR DISCOMFORT. NO SIGNS OF DISTRESS NOTED. WILL CONTINUE TO MONITOR.
[2020-12-12] MEDS ORDERED: hydrALAZINE 25 MG TAB PO PRN (12:45)
[2020-12-12] MEDS ORDERED: hydrALAZINE 25 MG TAB PO SCH (13:00)
--- NOTE | 2020-12-12 13:30 | NUR ---
BLOOD GLUCOSE IS 311. INFORMED DR GATES. PER DR GATES, COVER WITH ONLY 6 UNITS OF INSULIN. CONTINUE TO MONITOR.
[2020-12-12] MEDS: INSULIN LISPRO SLIDING SCALE 100 UNITS/ML VIAL SUBQ PRN ×3 (13:51→23:50)
[2020-12-12] MEDS: FLUCONAZOLE 100 MG/NS PREMIX 50 ML IV SCH (14:47)
--- NOTE | 2020-12-12 14:51 | NUR ---
DIFFLUCAN 100 MG GIVEN INFUSING WELL.
[2020-12-12 16:00] VITALS: BP 125/72
--- NOTE | 2020-12-12 17:30 | NUR ---
BLOOD GLUCOSE IS 265 AND BP IS 125/72. UPDATED DR GATES. PER [address] ACCUCHECK Q2H. START ACCUCHECK ACHS. AND OK TO COVER PATIENT WITH INSULIN.
--- NOTE | 2020-12-12 19:30 | NUR ---
ENDORSED PATIENT TO CARE NAVIGATOR NURSE. PATIENT STABLE.
[2020-12-12 20:00] VITALS: BP 125/72
[2020-12-13] VITALS: BP 120/71
--- NOTE | 2020-12-13 01:23 | NUR ---
PATIENT ALERT ON RA NO C/O OF PAIN LUNGS CLEAR SAT97% ON MONITOR SINUS PATIENT HAS A DIAPER ON INCONT. OF STOOL HAS KAUR DRAINING YELLOW URINE IV CAME OUT 2229 RESTART A NEW 20 GA IN RIGHT FA. INFUSING D5NS 60 HOUR. BLOOD SUGAR 167 RECEIVED 2 UNITS OF HUMALOG S.Q. NO DISTRESS NOTED. THOMAS MILAN RN.
[2020-12-13 04:00] VITALS: BP 110/70
[2020-12-13] MEDS: PIPERACILLIN/TAZOBACTAM 3.375 GM in DEXTROSE 5% 50 ML IV SCH ×2 (05:10→13:16)
[2020-12-13 06:12] LABS: MAGNESIUM 1.5 mg/dL (1.8-2.4); PHOSPHORUS 2.9 mg/dL (2.5-4.9)
[2020-12-13 06:16] LABS: BASOPHILS % (AUTO) 0.1 % (0.0-2.0); EOSINOPHILS # (AUTO) 0.2 K/uL (0-0.4); EOSINOPHILS % (AUTO) 1.6 % (0.0-4.0); HEMATOCRIT 25.4 % (36-48); HEMOGLOBIN 8.6 g/dL (12.0-16.0); LYMPHOCYTES # (AUTO) 5.1 K/uL (2.5-16.5); LYMPHOCYTES % (AUTO) 41.1 % (20.5-51.1); MEAN CORPUSCULAR HEMOGLOBIN 29 pg (27-31); MEAN CORPUSCULAR HGB CONC 34 g/dL (33-37); MEAN CORPUSCULAR VOLUME 85.9 fL (80-94); MONOCYTES # (AUTO) 0.4 K/uL (0.8-1.0); MONOCYTES % (AUTO) 3.5 % (1.7-9.3); NEUTROPHILS # (AUTO) 6.6 K/uL (1.8-7.7); NEUTROPHILS % (AUTO) 53.7 % (42.2-75.2); PLATELET COUNT (AUTO) 411 K/uL (140-450); RED BLOOD CELL COUNT(AUTO) 2.96 MIL/uL (4.20-5.40); RED CELL DISTRIBUTION WIDTH 13.7 % (11.6-13.7); WHITE BLOOD COUNT (AUTO) 12.3 K/uL (4.8-10.8)
[2020-12-13 06:18] LABS: ANION GAP 5.7 (8-16); CARBON DIOXIDE 34.4 mmol/L (21-32); CREATININE 0.8 mg/dL (0.6-1.3); POTASSIUM 3.1 mmol/L (3.5-5.1)
--- NOTE | 2020-12-13 07:15 | NUR ---
RECEIVED REPORT FROM DOCUMENT ADVISOR NURSE FOR CONTINUITY OF CARE. PATIENT AWAKE AND ALERT. PATIENT ON RA. CALL LIGHT WITHIN REACH. WILL CONTINUE TO MONITOR.
[2020-12-13] MEDS: BLOOD GLUCOSE MONITORING 1 DEV DEV FS SCH ×2 (07:30→12:15)
[2020-12-13 08:00] VITALS: BP 117/67
[2020-12-13] MEDS: VENLAFAXINE 37.5 MG TAB PO SCH (08:33)
[2020-12-13] MEDS: AMYLASE/LIPASE/PROTEASE 1 CAPDR PO SCH ×2 (08:33→12:22)
[2020-12-13] MEDS: METOPROLOL 25 MG TAB PO SCH (08:34)
[2020-12-13] MEDS: POTASSIUM CHLORIDE 10 MEQ TABER PO PRN (08:45)
[2020-12-13] MEDS: MAG SULF 2000 MG/WATER PREMIX 50 ML IV PRN (08:52)
--- NOTE | 2020-12-13 08:56 | NUR ---
PATIENT AWAKE AND ALERT. DAUGHTER AT BEDSIDE. ALL SCHEDULED MEDICATIONS GIVEN. GLUCOSE 135. NO INSULIN COVERAGE NEEDED. PATIENT IV TO RIGHT WRIST PATENT AND INTACT. CALL LIGHT WITHIN REACH. ALL SAFETY MEASURES IN PLACE. WILL CONTINUE TO MONITOR.
[2020-12-13] MEDS: NYSTATIN POW 100 MU/GM 15 GM BTL TP SCH (09:00)
[2020-12-13] MEDS ORDERED: lisinopriL 20 MG TAB PO SCH (09:00)
--- NOTE | 2020-12-13 10:45 | NUR ---
PATIENT AWAKE AND ALERT. PATIENT REMAINS ON ROOM AIR. NO ACUTE DISTRESS NOTED. PATIENT IV TO RIGHT WRIST PATENT AND INTACT. CALL LIGHT WITHIN REACH. ALL SAFETY MEASURES IN PLACE. WILL CONTINUE TO MONITOR.
[2020-12-13 12:00] VITALS: BP 137/76
[2020-12-13] MEDS: INSULIN LISPRO SLIDING SCALE 100 UNITS/ML VIAL SUBQ PRN (12:18)
--- NOTE | 2020-12-13 12:19 | NUR ---
PATIENT AWAKE AND ALERT. PATIENT REMAINS ON ROOM AIR. NO ACUTE DISTRESS NOTED. PATIENT DENIES PAIN AT THIS TIME. CALL LIGHT WITHIN REACH. ALL SAFETY MEASURES IN PLACE. WILL CONTINUE TO MONITOR.
--- NOTE | 2020-12-13 15:30 | NUR ---
PATIENT AWAKE AND ALERT. NO ACUTE DISTRESS NOTED. PATIENT VS STABLE. DISCHARGE INFORMATION GIVEN. PATIENT SIGNED ALL DOCUMENTS. PATIENT VERBALIZE UNDERSTANDING. WRISTBAND AND IV REMOVED. IV CATHETER INTACT. AT BEDSIDE. [facility] HOME BY .
== END 2020-12-13 15:30 | disposition home or self-care (01) | DRG 720 ==
LOC: MED 17:42 → MTU 21:33
PROC: 0DB58ZX Excision of Esophagus, Via Natural or Artificial Opening Endoscopic, Diagnostic (ICD-10-PCS; 2020-12-09)
PROC: 0DB78ZX Excision of Stomach, Pylorus, Via Natural or Artificial Opening Endoscopic, Diagnostic (ICD-10-PCS; principal; 2020-12-09 12:30)
DX: A41.9 Sepsis, unspecified organism (principal); N17.0 Acute kidney failure with tubular necrosis; E11.00 Type 2 diabetes mellitus with hyperosmolarity without nonketotic hyperglycemic-hyperosmolar coma (NKHHC); E43 Unspecified severe protein-calorie malnutrition; B37.81 Candidal esophagitis; E87.1 Hypo-osmolality and hyponatremia; D64.9 Anemia, unspecified; N13.6 Pyonephrosis; E11.65 Type 2 diabetes mellitus with hyperglycemia; K29.70 Gastritis, unspecified, without bleeding; K80.20 Calculus of gallbladder without cholecystitis without obstruction; I70.0 Atherosclerosis of aorta; E87.8 Other disorders of electrolyte and fluid balance, not elsewhere classified; E87.6 Hypokalemia; K86.1 Other chronic pancreatitis; E83.42 Hypomagnesemia; E11.43 Type 2 diabetes mellitus with diabetic autonomic (poly)neuropathy; K31.84 Gastroparesis; N84.0 Polyp of corpus uteri; Z20.822 Contact with and (suspected) exposure to COVID-19; Z60.2 Problems related to living alone; Z91.14 Patient's other noncompliance with medication regimen; Z68.1 Body mass index [BMI] 19.9 or less, adult; Z98.51 Tubal ligation status
CPT/HCPCS: 36415; 74022; 76705; 76830; 80048; 80053; 80305; 81001; 82150; 82803; 82948; 83036; 83605; 83690; 83735; 84100; 84134; 84436; 84443; 85025; 85610; 85730; 86300; 86304; 86677; 87040; 87081; 87086; 88305; 88312; 96361; 96365; 96375; 99291; C9113; J0696; J1200; J1450; J1644; J1815; J2001; J2250; J2543; J2765; J3010; J3370; J3430; J3475; J3480; J7030; J7060; Q0092; Q9967

== ENCOUNTER 2021-02-06 00:41 | Emergency (ER) | payer MEDICAID, SELFPAY ==
[~2021-02-06] VITALS: Ht 162.6 cm; Wt 47.6 kg
[~2021-02-06 00:41] MED LIST: FLUC200T PO; GLIM2TAB PO; LISI-486 PO; METO-485 PO; METO25TA PO; PAN PO; [UNRECOGNIZED DRUG - CODE] PO
[2021-02-06 02:49] VITALS: BP 135/79
--- NOTE | 2021-02-06 03:00 | NUR ---
Patient has laceration to RT EYEBROW. Dr. ALEXIS applied sutures using sterile technique. Edges well approximated. Site cleansed with NS. No bleeding noted. Pt tolerated well.
[2021-02-06] MEDS ORDERED: BACITRACIN OINT 500 UNITS/GM PKT TP ONE (03:40)
[2021-02-06] MEDS ORDERED: LIDOCAINE 2% 1000 MG/50 ML VIAL INJ ONE (03:40)
[2021-02-06] MEDS ORDERED: LIDOCAINE 2% 100 MG/5 ML SYR IVP ONE (03:42)
[2021-02-06 04:00] VITALS: BP 135/79
[2021-02-06] MEDS ORDERED: BACI1PAC6 TP (04:08)
== END 2021-02-06 04:00 | disposition home or self-care (01) ==
LOC: MED 00:41
DX: S01.111A Laceration without foreign body of right eyelid and periocular area, initial encounter (principal); E11.9 Type 2 diabetes mellitus without complications; Z79.899 Other long term (current) drug therapy; W19.XXXA Unspecified fall, initial encounter; Y93.89 Activity, other specified; Y92.89 Other specified places as the place of occurrence of the external cause; Y99.8 Other external cause status
CPT/HCPCS: 12013; 90471; 90715; 99283; J2001